=== PATIENT | female | born 1980 | race Caucasian/White ===

== ENCOUNTER 2017-03-24 17:34 | Emergency (ER) | payer OTHER ==
[~2017-03-24] VITALS: Ht 165.1 cm; Wt 149.4 kg
[~2017-03-24 17:34] MED LIST: ALLOPURINOL100 MG PO; AMOXICILLIN875 MG PO; ANTIHYPERTENSIVE PO; AZO95 MG PO; BENAZEPRIL-HCT1 EAC2 PO; CELEBREX200 MG PO; HYDROCHLOROTHIA25 MG PO; HYZAAR 100-21 TABLET PO; JANUVIA100 MG PO; K-DUR20 MEQ PO; LOESTRIN 241 TABLET PO; METFORMIN HCL500 MG PO; MOTRIN600 MG PO; MULTI-DAY VITA1 EACH PO; PRILOSEC40 MG PO; TRAMADOL HCL50 MG PO; ULTRAM50 MG PO; ZOFRAN4 MG PO; ZYLOPRIM100 MG PO
[2017-03-24 18:06] LABS: HEMATOCRIT 36.8 % (36.0-46.0); HEMOGLOBIN 12.7 G/DL (11.9-15.5); MCH 28.9 PG (29.0-34.0); MCHC 34.5 G/DL (30.0-36.0); MCV 83.6 FL (83-99); PLATELET COUNT 210 K/uL (156-360); RBC DIS.WIDTH-CV 13.2 % (11.8-14.6); RBC DIS.WIDTH-SD 40.3 % (39-53); WHITE BLOOD COUNT 8.8 K/uL (4.1-10.2)
[2017-03-24 18:26] LABS: TROP-I INTERPRETATION NEGATIVE; TROPONIN-I < 0.01 ng/mL (0.0-0.30)
[2017-03-24 18:36] LABS: CHLORIDE 102 mEq/L (99-109); POTASSIUM 3.3 mEq/L (3.7-5.4); SODIUM 137 mEq/L (136-147)
[2017-03-24 18:37] LABS: GLUCOSE 238 mg/dL (70-99)
[2017-03-24 18:41] LABS: CREATININE 0.8 mg/dL (0.6-1.3); GFR ESTIMATE (CALCULATED) > 59 mL/min/
[2017-03-24 18:42] LABS: UREA NITROGEN (BUN) 13 mg/dL (9-23)
[2017-03-24 20:24] LABS: QUANTITATIVE HCG < 4.0 MIU/ML
[2017-03-24 20:36] LABS: APPEARANCE CLOUDY ((CLEAR)); BILIRUBIN NEGATIVE; BLOOD NEGATIVE; GLUCOSE (STRIP) >=500; KETONES NEGATIVE; LEUKOCYTES LARGE; NITRITE NEGATIVE; PROTEIN (STRIP) NEGATIVE; SPECIFIC GRAVITY 1.016 (1.000-1.030); UROBILINOGEN 0.2 MG/DL (0.2-1.0)
[2017-03-24 20:36] LABS: TROP-I INTERPRETATION NEGATIVE; TROPONIN-I < 0.01 ng/mL (0.0-0.30)
[2017-03-24 20:37] LABS: COLOR YELLOW ((YELLOW))
[2017-03-24 20:53] LABS: EPITHELIAL CELLS 4+ /HPF; MUCUS NONE SEEN /LPF
[2017-03-24 20:54] LABS: AMORPHOUS URATES CRYSTALS 2+; BACTERIA 3+ /HPF; RED BLOOD CELLS NONE SEEN /HPF (0-5)
[2017-03-24 21:07] LABS: D-DIMER ELISA < 150.00 ng/mLDDU (<230)
[2017-03-24] MEDS ORDERED: MOBIC7.5 MG PO (21:36)
[2017-03-24] MEDS ORDERED: FLEXERIL10 MG PO (21:36)
[2017-03-24] MEDS ORDERED: KEFLEX500 MG PO (21:43)
[2017-03-24 21:57] VITALS: BP 178/101
== END 2017-03-24 22:00 | disposition home or self-care (01) ==
LOC: EME 17:34
PROVIDERS: Nurse Practitioner Family
DX: R07.9 Chest pain, unspecified (principal); E11.65 Type 2 diabetes mellitus with hyperglycemia; N39.0 Urinary tract infection, site not specified; E66.01 Morbid (severe) obesity due to excess calories; Z68.43 Body mass index [BMI] 50.0-59.9, adult; I10 Essential (primary) hypertension; K21.9 Gastro-esophageal reflux disease without esophagitis; F41.9 Anxiety disorder, unspecified; Z79.84 Long term (current) use of oral hypoglycemic drugs; M10.9 Gout, unspecified; M19.90 Unspecified osteoarthritis, unspecified site; M41.9 Scoliosis, unspecified; N83.209 Unspecified ovarian cyst, unspecified side
CPT/HCPCS: 71046; 80048; 81003; 84484; 84702; 85027; 85379; 93005; 99281; 99285

== ENCOUNTER 2017-06-29 15:06 | Emergency (ER) | payer OTHER ==
[~2017-06-29] VITALS: Ht 165.1 cm; Wt 143.3 kg
[~2017-06-29 15:06] MED LIST changes: +FLEXERIL10 MG PO; +KEFLEX500 MG PO; +MOBIC7.5 MG PO
[2017-06-29 15:39] LABS: APPEARANCE CLEAR ((CLEAR)); BILIRUBIN NEGATIVE; BLOOD NEGATIVE; COLOR YELLOW ((YELLOW)); GLUCOSE (STRIP) 50; KETONES NEGATIVE; LEUKOCYTES SMALL; NITRITE NEGATIVE; PROTEIN (STRIP) NEGATIVE; SPECIFIC GRAVITY 1.011 (1.000-1.030); UROBILINOGEN 0.2 MG/DL (0.2-1.0)
[2017-06-29 15:42] LABS: HEMOGLOBIN 14.3 G/DL (11.9-15.5); MCH 29.1 PG (29.0-34.0); MCHC 34.9 G/DL (30.0-36.0); MCV 83.3 FL (83-99); PLATELET COUNT 258 K/uL (156-360); RBC DIS.WIDTH-CV 12.8 % (11.8-14.6); RBC DIS.WIDTH-SD 38.5 % (39-53); RED BLOOD COUNT 4.92 M/uL (3.80-5.20); WHITE BLOOD COUNT 10.8 K/uL (4.1-10.2)
[2017-06-29 15:43] LABS: BACTERIA NONE SEEN /HPF; EPITHELIAL CELLS 1+ /HPF; MUCUS NONE SEEN /LPF; RED BLOOD CELLS 0-5 /HPF (0-5); UCUL ADDED? NO; WHITE BLOOD CELLS 0-5 /HPF (0-5)
[2017-06-29 15:51] LABS: CHLORIDE 102 mEq/L (99-109); POTASSIUM 3.3 mEq/L (3.7-5.4); SODIUM 139 mEq/L (136-147)
[2017-06-29 15:53] LABS: GLUCOSE 171 mg/dL (70-99); TOTAL PROTEIN 7.1 g/dL (6.4-8.3)
[2017-06-29 15:55] LABS: TOTAL BILIRUBIN 0.4 mg/dL (0.0-1.0)
[2017-06-29 15:57] LABS: ALKALINE PHOSPHATASE 100 IU/L (3-129); CREATININE 0.9 mg/dL (0.6-1.3); GFR ESTIMATE (CALCULATED) > 59 mL/min/
[2017-06-29 15:58] LABS: UREA NITROGEN (BUN) 11 mg/dL (9-23)
[2017-06-29 15:59] LABS: AST (GOT) 40 IU/L (2-34)
[2017-06-29 16:00] LABS: ALT (GPT) 40 IU/L (3-49); LIPASE 32 U/L (1.0-51.0)
[2017-06-29 16:06] LABS: QUANTITATIVE HCG < 4.0 MIU/ML
[2017-06-29] MEDS ORDERED: MOTRIN800 MG PO (16:51)
[2017-06-29] MEDS ORDERED: ZOFRAN4 MG PO (16:51)
[2017-06-29 17:55] VITALS: BP 149/91
== END 2017-06-29 17:56 | disposition home or self-care (01) ==
LOC: EME 15:06 → EXP 15:06
PROVIDERS: Nurse Practitioner Family
DX: N88.8 Other specified noninflammatory disorders of cervix uteri (principal); I10 Essential (primary) hypertension; E11.9 Type 2 diabetes mellitus without complications; Z79.84 Long term (current) use of oral hypoglycemic drugs; K21.9 Gastro-esophageal reflux disease without esophagitis; M51.36 Other intervertebral disc degeneration, lumbar region; M19.90 Unspecified osteoarthritis, unspecified site; M41.9 Scoliosis, unspecified; F41.9 Anxiety disorder, unspecified; Z87.42 Personal history of other diseases of the female genital tract; Z90.49 Acquired absence of other specified parts of digestive tract
CPT/HCPCS: 74177; 76856; 80053; 81003; 83690; 84702; 85027; 99281; 99284; J1885; J2765; J7120